=== PATIENT | female | born 1995 | race Caucasian/White ===

== ENCOUNTER 2017-03-22 21:56 | Inpatient (IN) | payer SELFPAY ==
[~2017-03-22] VITALS: Ht 149.9 cm; Wt 63.5 kg
[2017-03-22] MEDS ORDERED: ONDANSETRON HCL 4MG/2ML VIAL IV STA (22:34)
[2017-03-22] MEDS ORDERED: SODIUM CHLORIDE 0.9% 1,000 ML IV ONE (22:34)
[2017-03-22] MEDS ORDERED: MORPHINE SULFATE 4 MG/ML CPJ (NOT FOR IM USE) IV STA (22:34)
[2017-03-22 23:02] LABS: BASOPHILS % 0.5 % (0.0-2.0); EOSINOPHILS % 0.4 % (0.0-5.0); HEMATOCRIT. 38.5 % (36.0-48.0); HEMOGLOBIN. 12.8 g/dL (12.0-16.0); LYMPHOCYTES % 12.2 % (20.0-50.0); MEAN CORPUSCULAR HEMOGLOBIN 28.6 pg (28.0-32.0); MEAN CORPUSCULAR VOLUME 86.1 fL (81.0-99.0); MEAN PLATELET VOLUME 8.6 fl (7.4-10.4); MONOCYTES % 4.8 % (2.0-8.0); NEUTROPHILS % 82.1 % (40.0-76.0); PLATELET 335 x1000/uL (130-400); RED BLOOD CELL COUNT 4.47 mill/uL (4.2-5.4); RED CELL DISTRIBUTION WIDTH 13.1 % (11.6-14.6)
[2017-03-22 23:11] LABS: INR 1.1; PROTHROMBIN TIME 11.1 sec (9.4-11.6)
[2017-03-22 23:12] LABS: CHLORIDE 104 mEq/L (98-107); CLARITY URINE CLEAR (CLEAR); COLOR URINE YELLOW (YELLOW); GLUCOSE URINE NEGATIVE (NEGATIVE); KETONES URINE NEGATIVE (NEGATIVE); LEUKOCYTE ESTERASE URINE NEGATIVE (NEGATIVE); NITRITE URINE NEGATIVE (NEGATIVE); OCCULT BLOOD URINE NEGATIVE (NEGATIVE); PROTEIN URINE NEGATIVE (NEGATIVE); SPECIFIC GRAVITY URINE 1.023 (1.005-1.030); UROBILINOGEN URINE 0.2 E.U./dL (0.2-1.0)
[2017-03-22 23:15] LABS: CARBON DIOXIDE 28 mEq/L (21-32); HCG SCREEN NEGATIVE
[2017-03-23] MEDS ORDERED: PIPERACILLIN/TAZOBACTAM 3.375GM/50ML PREMIX IV ONE (02:30)
[2017-03-23] MEDS ORDERED: IOHEXOL-300 100 ML BOTTLE ONE (02:44)
[2017-03-23] MEDS ORDERED: PIPERACILLIN/TAZ 3.375G PREMIX 50 ML IV NR (03:00)
[2017-03-23] MEDS ORDERED: DIATR MEGLU/DIATRIZOATE SOLN 120ML ONE (03:18)
[2017-03-23 07:00] VITALS: BP 98/65
[2017-03-23] MEDS ORDERED: HYDROCODONE/ACETAMINOPHEN 5/325MG TABLET PO PRN (08:45)
[2017-03-23] MEDS ORDERED: ACETAMINOPHEN 650MG SUPP PR PRN (08:45)
[2017-03-23] MEDS ORDERED: ONDANSETRON HCL 4MG/2ML VIAL IV PRN (08:45)
[2017-03-23] MEDS ORDERED: ACETAMINOPHEN 650MG/20.3ML UDC GT PRN (08:45)
[2017-03-23] MEDS ORDERED: IPRATROPIUM/ALBUTEROL 0.5-3(2.5)MG/3ML NEB INH PRN (08:45)
[2017-03-23] MEDS ORDERED: GUAIFENESIN 200MG/10ML SUGAR FREE UDC PO PRN (08:45)
[2017-03-23] MEDS ORDERED: MAGNESIUM/ALUMINUM HYDROXIDE/SIMETHICONE 30ML UDC PO PRN (08:45)
[2017-03-23] MEDS ORDERED: ACETAMINOPHEN 325MG TABLET PO PRN (08:45)
[2017-03-23] MEDS ORDERED: CLINDAMYCIN 600 MG in DEXTROSE 5% WATER 50 ML IV SCH (08:45)
[2017-03-23] MEDS ORDERED: DOCUSATE SODIUM 100MG CAPSULE PO PRN (08:45)
[2017-03-23] MEDS ORDERED: KETOROLAC 30MG/ML VIAL IV PRN (08:45)
[2017-03-23] MEDS ORDERED: DIPHENHYDRAMINE 50MG/ML VIAL IV PRN (08:45)
[2017-03-23] MEDS ORDERED: CLONIDINE 0.1MG TABLET PO PRN (08:45)
[2017-03-23] MEDS ORDERED: HYDROCODONE/ACETAMINOPHEN 10/325MG TABLET PO PRN (08:45)
[2017-03-23 10:14] LABS: BASOPHILS % 0.3 % (0.0-2.0); EOSINOPHILS % 0.5 % (0.0-5.0); HEMATOCRIT. 34.8 % (36.0-48.0); HEMOGLOBIN. 11.8 g/dL (12.0-16.0); MEAN CORPUSCULAR HEMOGLOBIN 29.1 pg (28.0-32.0); MEAN CORPUSCULAR VOLUME 85.9 fL (81.0-99.0); MEAN PLATELET VOLUME 8.7 fl (7.4-10.4); MONOCYTES % 4.9 % (2.0-8.0); NEUTROPHILS % 69.3 % (40.0-76.0); PLATELET 300 x1000/uL (130-400); RED BLOOD CELL COUNT 4.05 mill/uL (4.2-5.4); RED CELL DISTRIBUTION WIDTH 13.2 % (11.6-14.6)
[2017-03-23 10:26] LABS: CARBON DIOXIDE 28 mEq/L (21-32); CHLORIDE 106 mEq/L (98-107)
[2017-03-23] MEDS ORDERED: CLINDAMYCIN 600MG PREMIX 50 ML IV SCH (11:00)
[2017-03-23] MEDS: SODIUM CHLORIDE 0.45% 1,000 ML IV SCH (11:23)
[2017-03-23 11:38] LABS: *AMPHETAMINES SCREEN URINE NEGATIVE (NEGATIVE); *BARBITURATES SCREEN URINE NEGATIVE (NEGATIVE); *BENZODIAZEPINES SCREEN URINE NEGATIVE (NEGATIVE); *COCAINE SCREEN URINE NEGATIVE (NEGATIVE); CANNABINOID URINE SCREEN NEGATIVE (NEGATIVE); METHADONE URINE SCREEN NEGATIVE (NEGATIVE); OPIATES URINE SCREEN NEGATIVE (NEGATIVE); PHENCYCLIDINE URINE SCREEN NEGATIVE (NEGATIVE)
[2017-03-23 12:00] VITALS: BP 98/58
[2017-03-23] MEDS ORDERED: KETOROLAC 30MG/ML VIAL IV NR (12:33)
[2017-03-23] MEDS: CLINDAMYCIN 600MG PREMIX 50 ML IV SCH ×2 (13:58→21:09)
[2017-03-23] MEDS: SODIUM CHLORIDE 0.9% INJ 3ML FLUSH IVF SCH ×2 (13:59→21:10)
[2017-03-23 16:00] VITALS: BP 99/64
[2017-03-23 20:00] VITALS: BP 98/61
[2017-03-24] VITALS: BP 90/48
[2017-03-24] MEDS: SODIUM CHLORIDE 0.45% 1,000 ML IV SCH (01:01)
[2017-03-24 04:00] VITALS: BP 92/50
[2017-03-24] MEDS: SODIUM CHLORIDE 0.9% INJ 3ML FLUSH IVF SCH ×2 (06:01→15:31)
[2017-03-24] MEDS: CLINDAMYCIN 600MG PREMIX 50 ML IV SCH (06:02)
[2017-03-24 07:10] LABS: CARBON DIOXIDE 28 mEq/L (21-32); CHLORIDE 105 mEq/L (98-107)
[2017-03-24 08:00] VITALS: BP 93/60
[2017-03-24] MEDS ORDERED: FAMOTIDINE 20MG/2ML VIAL IV SCH (11:30)
[2017-03-24] MEDS ORDERED: POTASSIUM CHLORIDE 20MEQ TABLET SR PO SCH (12:00)
[2017-03-24 12:30] LABS: BASOPHILS % 0.5 % (0.0-2.0); EOSINOPHILS % 1.2 % (0.0-5.0); HEMATOCRIT. 35.1 % (36.0-48.0); HEMOGLOBIN. 11.6 g/dL (12.0-16.0); LYMPHOCYTES % 36.1 % (20.0-50.0); MEAN CORPUSCULAR HEMOGLOBIN 28.7 pg (28.0-32.0); MEAN PLATELET VOLUME 9.2 fl (7.4-10.4); MONOCYTES % 6.3 % (2.0-8.0); NEUTROPHILS % 55.9 % (40.0-76.0); PLATELET 288 x1000/uL (130-400); RED BLOOD CELL COUNT 4.04 mill/uL (4.2-5.4); RED CELL DISTRIBUTION WIDTH 13.3 % (11.6-14.6)
[2017-03-24] MEDS ORDERED: INFLUENZA VIRUS VACCINE 0.5ML SYR IM ONE (13:00)
[2017-03-24 13:04] VITALS: BP 99/62
== END 2017-03-24 16:08 | disposition home or self-care (01) | DRG 249 ==
LOC: ER 22:03 → 6EST 03-23 04:22 → ENRESERV 03-23 06:14
PROVIDERS: ADMIT Family Medicine; ATTEND Family Medicine
DX: K52.9 Noninfective gastroenteritis and colitis, unspecified (principal); N28.1 Cyst of kidney, acquired; D72.829 Elevated white blood cell count, unspecified; I88.0 Nonspecific mesenteric lymphadenitis
CPT/HCPCS: 36415; 71010; 74176; 74177; 76705; 76830; 76856; 80053; 80305; 81003; 83605; 83690; 84703; 85025; 85610; 86850; 86900; 87040; 87086; 90686; 93005; 96361; 96372; 96374; 96375; 99285; J1885; J2270; J2405; J2543; J3490; J7030; Q9963; Q9967